=== PATIENT | male | born 1955 | race Caucasian/White ===

== ENCOUNTER → 2023-12-17 | Outpatient (RCR) | payer OTHER ==
[~2023-12-17] MED LIST: ASPIRIN 81M81 MG/TA2 PO; B COMPLEX #11 TA1 PO; LIPITOR 40MG TA40 MG PO; PROTONIX 40MG T40 MG PO
== END | disposition home or self-care (01) ==
LOC: WSPT
DX: M54.42 Lumbago with sciatica, left side (principal); G89.29 Other chronic pain

== ENCOUNTER 2024-01-14 10:30 | Outpatient (RCR) | payer OTHER | END 2024-01-17 | disposition home or self-care (01) | LOC: WSPT | DX: G89.29 Other chronic pain (principal); M54.42 Lumbago with sciatica, left side ==